=== PATIENT | female | born 1975 | race Caucasian/White ===

== ENCOUNTER 2017-07-07 23:58 | Emergency (ER) | payer SELFPAY ==
[~2017-07-07] VITALS: Ht 170.2 cm; Wt 61.6 kg
[~2017-07-07 23:58] MED LIST: CIPRO XR500 MG PO; CIPROFLOXACN500 MG PO; LORTAB5 OR; LORTAB5 PO; NO; PENICILLN VK500 M1 OR; PROMETHAZINE25 MG OR; PROMETHAZINE25 MG RE; ZOFRAN ODT4 MG PO; ZOFRAN4 M1 OR
[2017-07-08] MEDS ORDERED: ULTRAM50 M1 PO (01:06)
[2017-07-08] MEDS ORDERED: AMOXICILLIN500 MG PO (01:06)
[2017-07-08 01:35] VITALS: BP 112/74
== END 2017-07-08 01:35 | disposition home or self-care (01) | DRG 563 ==
LOC: ED 23:58
DX: S92.511A Displaced fracture of proximal phalanx of right lesser toe(s), initial encounter for closed fracture (principal); L08.9 Local infection of the skin and subcutaneous tissue, unspecified; X58.XXXA Exposure to other specified factors, initial encounter; S00.06XA Insect bite (nonvenomous) of scalp, initial encounter; W57.XXXA Bitten or stung by nonvenomous insect and other nonvenomous arthropods, initial encounter